=== PATIENT | female | born 1985 | race Caucasian/White ===

== ENCOUNTER → 2016-09-07 | Outpatient (CLI) | payer BC | LOC: HPND 12:51 | PROVIDERS: ATTEND Obstetrics & Gynecology | DX: O26.842 Uterine size-date discrepancy, second trimester (principal); O34.42 Maternal care for other abnormalities of cervix, second trimester; O09.292 Supervision of pregnancy with other poor reproductive or obstetric history, second trimester; O99.212 Obesity complicating pregnancy, second trimester; E66.09 Other obesity due to excess calories; Z3A.25 25 weeks gestation of pregnancy | CPT/HCPCS: 76816 ==

== ENCOUNTER → 2016-10-02 | Outpatient (CLI) | payer BC | LOC: HPND 08:10 | PROVIDERS: ATTEND Obstetrics & Gynecology | DX: O26.842 Uterine size-date discrepancy, second trimester (principal); O34.42 Maternal care for other abnormalities of cervix, second trimester | CPT/HCPCS: 76816 ==

== ENCOUNTER → 2016-11-03 | Outpatient (CLI) | payer BC | LOC: HPND 13:00 | PROVIDERS: ATTEND Obstetrics & Gynecology | DX: O35.8XX0 Maternal care for other (suspected) fetal abnormality and damage, not applicable or unspecified (principal); O34.43 Maternal care for other abnormalities of cervix, third trimester; O26.843 Uterine size-date discrepancy, third trimester | CPT/HCPCS: 76811 ==

== ENCOUNTER → 2016-11-30 | Outpatient (CLI) | payer BC | LOC: HPND 13:54 | PROVIDERS: ATTEND Obstetrics & Gynecology | DX: O99.213 Obesity complicating pregnancy, third trimester (principal); O26.843 Uterine size-date discrepancy, third trimester | CPT/HCPCS: 76816 ==